=== PATIENT | female | born 1980 | race Two or more races ===

== ENCOUNTER 2022-06-18 06:02 | Emergency (ER) | payer OTHER ==
[~2022-06-18] VITALS: Ht 165.1 cm; Wt 54.4 kg
== END 2022-06-18 09:00 | disposition home or self-care (01) ==
LOC: ER 06:02
DX: S00.03XD Contusion of scalp, subsequent encounter (principal); W18.39XD Other fall on same level, subsequent encounter; Y93.89 Activity, other specified; Y92.018 Other place in single-family (private) house as the place of occurrence of the external cause; Y99.9 Unspecified external cause status; Z88.0 Allergy status to penicillin